=== PATIENT | male | born 1965 | race Caucasian/White ===

== ENCOUNTER 2022-04-30 11:48 | Outpatient (REF) | payer OTHER, SELFPAY ==
[2022-04-30 13:22] LABS: MANUAL DIFF FLAG NO
[2022-04-30 13:34] LABS: Basophils Percent Auto 0.8 % (0-2); Eosinophils Absolute Auto 0.4 X10*3/uL (0.0-0.4); Eosinophils Percent Auto 6.7 % (0-4); Hematocrit 36.1 % (42.0-52.0); Hemoglobin 11.5 g/dl (14.0-18.0); Imm Gran Abs Auto 0.05 X10*3/uL (0.00-0.03); Lymphocytes Absolute Auto 1.6 X10*3/uL (1.2-4.9); Lymphocytes Percent Auto 30.3 % (20-40); Mean Corpuscular HGB Conc 31.9 g/dl (31.0-36.0); Mean Corpuscular Hemoglobin 30.3 pg (27.0-33.0); Mean Corpuscular Volume 95.3 fL (80.0-98.0); Mean Platelet Volume 10.1 fL (9.4-12.4); Monocytes Absolute Auto 0.5 X10*3/uL (0.1-1.2); Monocytes Percent Auto 9.3 % (2-11); Neutrophils Absolute Auto 2.7 x10*3/uL (2.0-8.3); Neutrophils Percent Auto 51.9 % (45-73); Platelet Count 299 X10*3/uL (160-400); Red Blood Count 3.79 X10*6/uL (4.60-5.80); Red Cell Distribution Width 13.8 % (11.0-16.0); White Blood Count 5.3 X10*3/uL (4.8-10.8)
[2022-04-30 13:45] LABS: Appearance Urine CLEAR; Color Urine YELLOW; Glucose Urine UA NEG (NEG); Leukocyte Esterase Urine NEG (NEG); Nitrite Urine NEG (NEG); Urine Blood NEG (NEG); Urine Ketones NEG (NEG); Urine Protein NEG (NEG-TRACE)
[2022-04-30 14:04] LABS: Alanine Aminotransferase 12 U/L (0-40); Albumin Level 3.9 g/dL (3.5-5.0); Alkaline Phosphatase 50 U/L (39-117); Anion Gap 10 (12-20); Aspartate Amino Transferase 17 U/L (5-37); Bilirubin Total < 0.2 mg/dL (0.0-1.0); Blood Urea Nitrogen 10 mg/dL (9-16); Calcium 8.7 mg/dL (8.4-10.2); Carbon Dioxide 26 mmol/L (22-29); Chloride 104 mmol/L (96-108); Cholesterol 138 mg/dL; Estimated Glomerular Filt Rate > 60; Glucose Fasting 123 mg/dL (60-99); HDL Cholesterol 47 mg/dL; LDL Cholesterol Calculated 74 mg/dl; Potassium 4.4 mmol/L (3.3-5.1); Sodium 136 mmol/L (135-145); Total Protein 6.3 g/dL (6.5-8.0); Triglycerides 87 mg/dL
[2022-04-30 14:14] LABS: Rheumatoid Factor < 15.0 IU/mL (<15.0)
[2022-04-30 14:22] LABS: Erythrocyte Sedimentation Rate 9 MM/HR (0-15); Prostate Specific Antigen Scr 0.55 ng/mL (<0.05-4.0); TSH reflex Free T4 0.55 uIU/mL (0.32-4.0)
[2022-05-04 11:06] LABS: Anti Nuclear Antibody Screen POSITIVE (NEGATIVE); Anti Nuclear Antibody Titer 1:40 titer
== END 2022-04-30 11:49 | disposition home or self-care (01) ==
LOC: HO.WFDLDS 11:48
PROVIDERS: Visit Provider Family Medicine
DX: Z00.00 Encounter for general adult medical examination without abnormal findings (principal); Z12.5 Encounter for screening for malignant neoplasm of prostate; M54.41 Lumbago with sciatica, right side; R21 Rash and other nonspecific skin eruption
CPT/HCPCS: 36415; 80053; 80061; 81003; 84153; 84443; 85025; 85652; 86038; 86039; 86431

== ENCOUNTER 2022-05-16 12:21 | Outpatient (REF) | payer OTHER, SELFPAY ==
[2022-05-16 14:03] LABS: MANUAL DIFF FLAG NO
[2022-05-16 14:07] LABS: Basophils Absolute Auto 0.1 X10*3/uL (0.0-0.2); Basophils Percent Auto 1.1 % (0-2); Eosinophils Absolute Auto 0.2 X10*3/uL (0.0-0.4); Eosinophils Percent Auto 2.9 % (0-4); Hematocrit 42.2 % (42.0-52.0); Hemoglobin 13.7 g/dl (14.0-18.0); Imm Gran Abs Auto 0.02 X10*3/uL (0.00-0.03); Imm Gran Pct Auto 0.4 % (0.0-0.4); Lymphocytes Absolute Auto 1.5 X10*3/uL (1.2-4.9); Lymphocytes Percent Auto 26.5 % (20-40); Mean Corpuscular HGB Conc 32.5 g/dl (31.0-36.0); Mean Corpuscular Hemoglobin 30.8 pg (27.0-33.0); Mean Corpuscular Volume 94.8 fL (80.0-98.0); Mean Platelet Volume 10.2 fL (9.4-12.4); Monocytes Absolute Auto 0.5 X10*3/uL (0.1-1.2); Monocytes Percent Auto 9.3 % (2-11); Neutrophils Absolute Auto 3.3 x10*3/uL (2.0-8.3); Neutrophils Percent Auto 59.8 % (45-73); Platelet Count 379 X10*3/uL (160-400); Red Blood Count 4.45 X10*6/uL (4.60-5.80); Red Cell Distribution Width 14.2 % (11.0-16.0); White Blood Count 5.5 X10*3/uL (4.8-10.8)
[2022-05-16 14:30] LABS: Alanine Aminotransferase 12 U/L (0-40); Albumin Level 4.5 g/dL (3.5-5.0); Alkaline Phosphatase 63 U/L (39-117); Anion Gap 13 (12-20); Aspartate Amino Transferase 18 U/L (5-37); Bilirubin Total 0.3 mg/dL (0.0-1.0); Blood Urea Nitrogen 6 mg/dL (9-16); Calcium 9.4 mg/dL (8.4-10.2); Carbon Dioxide 28 mmol/L (22-29); Chloride 105 mmol/L (96-108); Estimated Glomerular Filt Rate > 60; Glucose Random 94 mg/dL (60-115); Potassium 4.8 mmol/L (3.3-5.1); Sodium 141 mmol/L (135-145); Total Protein 7.3 g/dL (6.5-8.0)
== END 2022-05-16 12:22 | disposition home or self-care (01) ==
LOC: HO.WFDLDS 12:21
PROVIDERS: Visit Provider Family Medicine
DX: Z00.00 Encounter for general adult medical examination without abnormal findings (principal); R10.2 Pelvic and perineal pain; R10.9 Unspecified abdominal pain
CPT/HCPCS: 36415; 80053; 85025

== ENCOUNTER 2022-05-29 11:16 | Outpatient (REF) | payer OTHER, SELFPAY ==
--- NOTE | ~2022-05-29 | XR_ITS ---
EXAMINATION: XR CHEST CLINICAL INFORMATION: Chest pain on breathing. COMPARISON: None TECHNIQUE: 2 views of the chest were obtained. FINDINGS: The lungs are hyperinflated but clear of acute process. The heart size and pulmonary vascularity is normal. No gross bony abnormality seen. XR/XR chest 2V IMPRESSION: Hyperinflated lungs without acute pneumonic process.
== END 2022-05-29 11:17 | disposition home or self-care (01) ==
LOC: HO.HMGCX 11:16
PROVIDERS: PCP Family Medicine; Visit Provider Family Medicine
DX: R07.1 Chest pain on breathing (principal)
CPT/HCPCS: 71046

== ENCOUNTER 2022-05-31 11:00 | Outpatient (REF) | payer OTHER, SELFPAY ==
[2022-05-31 14:04] LABS: Anion Gap 15 (12-20); Blood Urea Nitrogen 11 mg/dL (9-16); Calcium 9.4 mg/dL (8.4-10.2); Carbon Dioxide 27 mmol/L (22-29); Chloride 104 mmol/L (96-108); Estimated Glomerular Filt Rate > 60; Glucose Random 91 mg/dL (60-115); Potassium 4.4 mmol/L (3.3-5.1); Sodium 142 mmol/L (135-145)
== END 2022-05-31 11:01 | disposition home or self-care (01) ==
LOC: HO.WFDLDS 11:00
PROVIDERS: Visit Provider Family Medicine
DX: Z00.00 Encounter for general adult medical examination without abnormal findings (principal); R10.2 Pelvic and perineal pain; R10.9 Unspecified abdominal pain
CPT/HCPCS: 36415; 80048

== ENCOUNTER 2022-06-20 09:41 | Outpatient (REF) | payer OTHER, SELFPAY ==
--- NOTE | ~2022-06-20 | CT_ITS ---
EXAMINATION: CT ABDOMEN AND PELVIS WITH CONTRAST CLINICAL INFORMATION: Abdominal pain COMPARISON: None TECHNIQUE: Multidetector volumetric images were obtained from the superior aspect of the liver through the pubic symphysis following administration 85 mL of Omnipaque 350 intravenous contrast. Sagittal and coronal reformatted images were obtained on the technologist's workstation. Oral contrast: Yes This CT examination was performed using dose optimization techniques as appropriate, variously including the following: *Automated exposure control *Adjustment of mA and/or kV according to patient size (this includes techniques or standardized protocols for targeted exams where dose is matched to indication/reason for exam; i.e. extremities or head) *Use of iterative reconstruction technique DLP: 251 mGy-cm FINDINGS: LUNG BASES: There is evidence of emphysema. LIVER, GALLBLADDER, AND BILIARY TREE: There is a small 5 mm low-attenuation lesion in the right lobe of the liver. This is difficult to characterize due to small size but may represent a cyst. The liver is otherwise normal. The gallbladder is normal. There is no biliary duct dilatation. PANCREAS: Unremarkable. SPLEEN: Unremarkable. ADRENAL GLANDS: Unremarkable. KIDNEYS AND URETERS: The kidneys are normal in size, shape, and attenuation. No hydronephrosis, hydroureter, or calculi seen. No perinephric stranding. BLADDER: Unremarkable. GASTROINTESTINAL TRACT: There is stool throughout the colon suggestive of constipation. Small and large bowel is otherwise unremarkable. The appendix is unremarkable. The stomach is unremarkable. ABDOMINAL WALL: No significant hernia is appreciated. LYMPH NODES: Normal. VASCULAR: There is evidence of atherosclerotic disease. No aneurysm. PELVIC VISCERA: Unremarkable. OSSEOUS STRUCTURES: There are degenerative changes of the spine. There is curvature of the lumbar spine to the left. CT/CT abdomen pelvis w IV con IMPRESSION: Stool throughout the colon suggestive of constipation. Probable small liver cyst. Emphysematous changes at the lung bases. Fleischner guidelines were followed.
[2022-06-20] MEDS: Barium Sulfate Oral (Berry) 450 ML ORAL.SUSP 900 ML PO (12:00)
[2022-06-20] MEDS: iohexoL 350 MG/ML 100 ML INFUS..BTL 85 ML IV (12:00)
== END 2022-06-20 09:42 | disposition home or self-care (01) ==
LOC: HO.CT 09:41
PROVIDERS: PCP Family Medicine; Visit Provider Family Medicine
DX: C62.90 Malignant neoplasm of unspecified testis, unspecified whether descended or undescended (principal); N50.82 Scrotal pain; R10.2 Pelvic and perineal pain; R10.9 Unspecified abdominal pain; R11.0 Nausea; R63.0 Anorexia
CPT/HCPCS: 74177; Q9967

== ENCOUNTER 2023-03-22 09:22 | Outpatient (REF) | payer OTHER, SELFPAY ==
[2023-03-22 11:35] LABS: MANUAL DIFF FLAG NO
[2023-03-22 11:53] LABS: Basophils Absolute Auto 0.1 X10*3/uL (0.0-0.2); Basophils Percent Auto 1.3 % (0-2); Eosinophils Absolute Auto 0.3 X10*3/uL (0.0-0.4); Eosinophils Percent Auto 4.9 % (0-4); Hematocrit 42.3 % (42.0-52.0); Imm Gran Abs Auto 0.02 X10*3/uL (0.00-0.03); Imm Gran Pct Auto 0.4 % (0.0-0.4); Lymphocytes Absolute Auto 1.5 X10*3/uL (1.2-4.9); Lymphocytes Percent Auto 26.4 % (20-40); Mean Corpuscular HGB Conc 33.1 g/dl (31.0-36.0); Mean Corpuscular Hemoglobin 31.5 pg (27.0-33.0); Mean Corpuscular Volume 95.1 fL (80.0-98.0); Mean Platelet Volume 10.3 fL (9.4-12.4); Monocytes Absolute Auto 0.6 X10*3/uL (0.1-1.2); Monocytes Percent Auto 10.6 % (2-11); Neutrophils Absolute Auto 3.1 x10*3/uL (2.0-8.3); Neutrophils Percent Auto 56.4 % (45-73); Platelet Count 342 X10*3/uL (160-400); Red Blood Count 4.45 X10*6/uL (4.60-5.80); Red Cell Distribution Width 14.3 % (11.0-16.0); White Blood Count 5.5 X10*3/uL (4.8-10.8)
[2023-03-22 12:12] LABS: Appearance Urine Clear; Color Urine Yellow; Glucose Urine UA Negative (Negative); Leukocyte Esterase Urine Negative (Negative); Nitrite Urine Negative (Negative); PH 6.5 (5.0-9.0); Urine Blood Negative (Negative); Urine Ketones Negative (Negative); Urine Protein Negative (Neg-Trace)
[2023-03-22 12:26] LABS: Alanine Aminotransferase 20 U/L (0-40); Albumin Level 4.2 g/dL (3.5-5.0); Alkaline Phosphatase 56 U/L (39-117); Anion Gap 13 (12-20); Aspartate Amino Transferase 21 U/L (5-37); Bilirubin Total 0.4 mg/dL (0.0-1.0); Blood Urea Nitrogen 12 mg/dL (9-16); Calcium 9.2 mg/dL (8.4-10.2); Carbon Dioxide 25 mmol/L (22-29); Chloride 106 mmol/L (96-108); Cholesterol 151 mg/dL; Estimated Glomerular Filt Rate > 60; Glucose Random 90 mg/dL (60-115); HDL Cholesterol 44 mg/dL; LDL Cholesterol Calculated 91 mg/dl; Potassium 4.2 mmol/L (3.3-5.1); Sodium 140 mmol/L (135-145); Triglycerides 80 mg/dL
[2023-03-22 12:32] LABS: Prostate Specific Antigen Scr 0.72 ng/mL (<0.05-4.0); TSH reflex Free T4 0.47 uIU/mL (0.32-4.0)
[2023-03-22 12:57] LABS: Syphilis Screen Nonreactive (Nonreactive)
[2023-03-22 14:31] LABS: HBS Num1 0.32 mIU/mL (0-7.99); HBc Num1 0.24 S/CO (0.00-0.79); HBsAGNum1 0.27 S/CO (0.00-0.99); HIV AB/AG Nonreactive (Nonreactive); HIV Num 1 0.06 S/CO (0.00-0.99); Hepatitis B Core Antibody Nonreactive (Nonreactive); Hepatitis B Surface Antigen Negative (Negative); ~HepC Num1 0.19 S/CO (0.00-0.79); ~Hepatitis B Surface Antibody NONREACTIVE (Nonreactive); ~Hepatitis C Antibody Nonreactive (Nonreactive)
[2023-03-24 10:58] LABS: LDL Cholesterol Direct 96 mg/dL (<100)
== END 2023-03-22 09:23 | disposition home or self-care (01) ==
LOC: HO.WFDLDS 09:22
PROVIDERS: Visit Provider Family Medicine
DX: Z00.00 Encounter for general adult medical examination without abnormal findings (principal); Z12.5 Encounter for screening for malignant neoplasm of prostate; Z11.3 Encounter for screening for infections with a predominantly sexual mode of transmission; R53.83 Other fatigue
CPT/HCPCS: 36415; 80053; 80061; 81003; 83721; 84153; 84443; 85025; 86704; 86706; 86780; 86803; 87340; 87389

== ENCOUNTER 2023-06-20 11:52 | Outpatient (AMB) | payer OTHER, SELFPAY ==
--- NOTE | 2023-06-20 11:56 | A.OFFPC_ITS ---
Vital Signs 06/20/23 11:57 Height 6 ft 2 in Weight 150 lb 2 oz BMI 19.3 BP 122/76 Blood Pressure Location Lt brachial Position Sitting Pulse 76 Pulse Source Pulse Oximeter Pulse Oximetry (%) 97 Oxygen Delivery Method Room Air Intake Visit Reasons: CPE Intake Note: Patient is here for his physical today, and concern of increasing meds, and working on disability. Allergies No Known Allergies [No Known Allergies*] Allergy (Verified 06/20/23 12:00) Tobacco use date assessed: 06/20/23 Dental Screening Dental Screen Date: 06/20/23 Did you have a dental visit in the last 12 months?: No Did you have a dental problem in the last 6 months where you did not have access to dental care?: No Was dental information given to patient?: Patient declined [facility] Medical History IBS (irritable bowel syndrome) Family History Father CVD (cardiovascular disease) Heart attack Mother Fibromyalgia Breast cancer Social History Housing: House Patient Tobacco Use Status: Current everyday Tobacco user e-Cigarette/Vaping Use: Never Used Second Hand Smoke Exposure: No service: No Current occupational status: unemployed Current occupational exposures/hazards: No Cognitive needs: No Hearing needs: No Vision needs: No Questionnaire DEMAR-7 AMB Questionnaire DEMAR-7 Date DEMAR - 7 assessed: 12/21/21 Source: Developed by Drs. Cedric Harmon, Kimberly Casarez, Hilton Chambers and colleagues, with an educational dorcas from [employer]. Review of Systems Const Details: ??? CONSTITUTIONAL ?no?fever.? no?fatigue.? no?chills.? EYES ?no?vision change.? ENT ?no?hearing loss.? no?nasal congestion.? no?hoarseness.? no?sore throat.? no?sinus pain.? CARDIOVASCULAR ?no?chest pain.? no?palpitations.? RESPIRATORY ?no?cough.? no?shortness of breath.? no?trouble breathing.? no?wheezing.? GASTROINTESTINAL ?no?abdominal pain.? no?change in stool.? no?blood in stool.? GENITOURINARY ?voiding normally?yes.? no?burning on urination.? no?blood in urine.? DERMATOLOGY ?no?rash.? MUSCULOSKELETAL ?no?bone pain.? no?joint pain.? no?muscle pain.? ENDOCRINE ?no?heat intolerance.? no?cold intolerance.? no?increased thirst.? HEMATOLOGY/LYMPH ?no?abnormal bleeding.? no?easy bruising.? PSYCHIATRIC ?no?anxiety.? no?depression.? ALLERGIC/IMMUNOLOGIC ?no?seasonal allergies.? NEUROLOGIC ?no?incoordination.? no?headache.? no?weakness.? no?dizziness.? no?gait abnormality.? Physical exam (Primary Care) Vital Signs: Last Vital Signs Pulse 76 06/20/23 11:57 BP 122/76 06/20/23 11:57 Pulse Ox 97 06/20/23 11:57 Oxygen Delivery Method Room Air 06/20/23 11:57 BMI result Body Mass Index 19.3 Tobacco/Smoking Status: Tobacco use Status Tobacco use date assessed 06/20/23 06/20/23 12:04 Patient Tobacco Use Status Current everyday Tobacco 06/20/23 12:04 Tobacco use type 06/15/22 15:22 e-Cigarette/Vaping Use Never Used 06/20/23 12:04 Const Other: General Appearance: no apparent distress, pleasant. HEENT: PERRLA, EOMI bilaterally, nose clear, TM's normal. Oral cavity: no lesions, pharnyx and tonsils normal. Neck: supple, no lymphadenopathy, no thyromegaly, JVP flat, no carotid bruit Heart: RRR, no murmurs, clicks or rubs, no gallops. Lungs: clear to auscultation. Chest wall: nontender. Abdomen: soft, non tender/non distended, no masses palpated, no hepatosplenomega ly, normal active bowel sounds. Back: normal ROM of spine, no spinal tenderness, no CVA tenderness. Skin: normal, no rash. Peripheral pulses: 2+, radial, dorsalis pedis, posterior tibial, bilaterally symetrical. Extremities: no edema. Neurologic Exam: alert and oriented x3, gait normal, no focal abnormality, motor 5/5 bilaterally proximally and distally in all 4 extremities, DTRs 1-2+ in all 4 exremities, Rhomberg negative, tiptoes for 5 seconds. Psych: affect normal. Assessment and Plan Assessment & Plan (1) Adult general medical exam: Code(s): Z00.00 - Encounter for general adult medical examination without abnormal findings Plan: 58-year-old male presents for complete physical exam Encouraged healthy diet with active lifestyle and plenty of exercise (2) Mild anemia: Code(s): D64.9 - Anemia, unspecified Plan: Resolved (3) GERD (gastroesophageal reflux disease): Code(s): K21.9 - Gastro-esophageal reflux disease without esophagitis Plan: Frequent symptoms-every day Start omeprazole Declines referral to GI for now but we can readdress this issue. (4) COPD (chronic obstructive pulmonary disease): Code(s): J44.9 - Chronic obstructive pulmonary disease, unspecified Plan: Patient is weaning down his smoking and I encouraged this Breathing currently stable as is his pulmonary exam. Had ordered chest x-ray which he has not gotten done yet. Reminded him to get this done and we can follow-up at his next visit (5) Smoker: Code(s): F17.200 - Nicotine dependence, unspecified, uncomplicated Plan: As above he is working on weaning off of smoking (6) Dermatitis: Code(s): L30.9 - Dermatitis, unspecified Plan: Ongoing dermatitis on his face and had previous scalp and castellanos fungal infection Has used some Nizoral shampoo which helped but still has residual dermatitis He can try a steroid ointment (7) Chronic back pain: Code(s): M54.9 - Dorsalgia, unspecified; G89.29 - Other chronic pain Plan: Chronic back pain with sciatica and radicular symptoms These affect his ability to work as he cannot bend or lean. He has difficulty sitting in anyone place for longer than a few minutes but also has difficulty with distances of walking. Muscle frequently change positions and what he is doing. Unable to lift or carry items having 20 lb. Exacerbations can cause him to lose strength in his legs and fall. Has had imaging, physical therapy and referral to pain management. These things did not help. Avoiding opiates as he is a recovering alcoholic. Has not tried gabapentin so we will give him this to try Patient is disabled and has been out of work. He will get me forms and we will fill them out to certify disability. (8) Depression with anxiety: Code(s): F41.8 - Other specified anxiety disorders Plan: He notes some significant worsening of depression lately. Taking paroxetine as prescribed Will add bupropion as adjunct. (9) Screening for prostate cancer: Code(s): Z12.5 - Encounter for screening for malignant neoplasm of prostate Plan: PSA is within normal limits (10) Screening for colon cancer: Code(s): Z12.11 - Encounter for screening for malignant neoplasm of colon Plan: Patient declines colonoscopy but agrees to Cologuard test. [place] Orders: Referrals Cologuard Test Z12.11 - Encounter for screening for malignant neoplasm of colon, Z12.12 - Encounter for screening for malignant neoplasm of rectum Medications: New gabapentin 300 mg PO BID 30 days 60 caps 2RF omeprazole 20 mg PO DAILY 30 days 30 caps 2RF betamethasone valerate 0.1% 1 appl topical DAILY 14 days PRN 45 grams 0RF skin irritation bupropion HCl 75 mg PO BID 30 days 60 tabs 1RF Refilled ketoconazole 1% (Nizoral A-D) 1 appl topical Q3D 15 days 200 mL 1RF paroxetine HCl 40 mg PO QAM 60 tabs 2RF R10.2 - Pelvic and perineal pain, R10.9 - Unspecified abdominal pain Coding Level of Care Code Est Pt Prev Care 40-64y(10985) Diagnoses Adult general medical exam Z00.00 Mild anemia D64.9 GERD (gastroesophageal reflux disease) K21.9 COPD (chronic obstructive pulmonary disease) J44.9 Smoker F17.200 Dermatitis L30.9 Chronic back pain M54.9; G89.29 Depression with anxiety F41.8 Screening for prostate cancer Z12.5 Screening for colon cancer Z12.11
[2023-06-20 11:57] VITALS: BP 122/76; PULSE 76; O2SAT 97; BMI 19.3
== END 2023-06-20 14:29 | disposition home or self-care (01) ==
PROVIDERS: PCP Family Medicine; Visit Provider Family Medicine
DX: Z00.00 Encounter for general adult medical examination without abnormal findings (principal); K21.9 Gastro-esophageal reflux disease without esophagitis; F17.210 Nicotine dependence, cigarettes, uncomplicated; F41.8 Other specified anxiety disorders; J44.9 Chronic obstructive pulmonary disease, unspecified; D64.9 Anemia, unspecified; L30.9 Dermatitis, unspecified; M54.9 Dorsalgia, unspecified
CPT/HCPCS: 99396

== ENCOUNTER 2024-04-29 15:04 | Outpatient (AMB) | payer OTHER, SELFPAY ==
--- NOTE | 2024-04-29 15:11 | MHC.OFFWIV ---
Intake Vital Signs 04/29/24 15:16 Weight 139 lb 4 oz BP 144/78 H Blood Pressure Location Lt brachial Position Sitting Respiration 16 Pulse 98 Pulse Source Pulse Oximeter Temp 97.8 F Temp Source Temporal Artery Scan Pulse Oximetry (%) 99 Oxygen Delivery Method Room Air Intake Visit Reasons: Upper Respiratory infection Intake Note: patient here c/o upper respiratory infection,he states he has had it before. 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 He reports that this happens at least once a year and he responds well to azithromycin. He has not currently on any inhalers. He denies fever, chills, ear pain, sore throat. No at-home treatment trialed before coming in today. Review of records show a CXR 2021 with hyperinflation c/w COPD. Awake alert NAD Sclera and conjunctiva clear bilat Nares clear drainage, turbinates pale, no sinus tenderness with palpation bilat TM intact with congestion bilat, no erythema MMM, pharynx + PND RRR LS dim throughout w/ ins/exp wheezing Plan: asked if he has ever taken prednisone or inhaler. states he has not. does not like to take meds. [facility] [employer] works best for him. Offered and declined anti-tussive. Edu to RTO if no improvement or worsening of sx. [facility] Medical History IBS (irritable bowel syndrome) Family History Father CVD (cardiovascular disease) Heart attack Mother Fibromyalgia Breast cancer Social History Housing: House Patient Tobacco Use Status: Current everyday Tobacco user e-Cigarette/Vaping Use: Never Used Second Hand Smoke Exposure: No service: No Current occupational status: unemployed Current occupational exposures/hazards: No Cognitive needs: No Hearing needs: No Vision needs: No Physical Exam Vital Signs: Last Vital Signs Temp 97.8 F 04/29/24 15:16 Pulse 98 04/29/24 15:16 Resp 16 04/29/24 15:16 BP 144/78 H 04/29/24 15:16 Pulse Ox 99 04/29/24 15:16 Oxygen Delivery Method Room Air 04/29/24 15:16 Assessment & Plan Assessment & Plan (1) COPD exacerbation: Code(s): J44.1 - Chronic obstructive pulmonary disease with (acute) exacerbation Plan: . (2) Smoker: Code(s): F17.200 - Nicotine dependence, unspecified, uncomplicated Plan: . Medications: New azithromycin For 250 mg dose pack: take 500 mg today (day 1), then 250 mg for 4 days (days 2-5) PO 5 days 6 tabs 0RF Patient Instructions: Smoking Cessation How to Quit There are a lot of ways to quit smoking and many resources to help you. Family members, friends, and co-workers may be supportive or encouraging, but to be successful the desire and commitment to quit must be your own. Most people who have been able to successfully quit smoking made at least one unsuccessful attempt in the past. Try not to view past attempts to quit as failures, but rather as learning experiences. Stopping smoking or using smokeless tobacco is difficult, but anyone can do it. Know the symptoms to expect when you stop. Common symptoms include: ? An intense craving for nicotine ? Anxiety, tension, restlessness, frustration, or impatience ? Difficulty concentrating ? Drowsiness or trouble sleeping, as well as bad dreams and nightmares ? Drowsiness and trouble sleeping ? Headaches ? Increased appetite and weight gain ? Irritability or depression How severe your symptoms are depends on how long you smoked and how many cigarettes you smoked each day. Feel ready to quit? ? First and foremost, set a quit date and quit completely on that day. Before your quit date, you may begin reducing your cigarette use. But remember, there is no safe level of cigarette smoking. ? List the reasons why you want to quit. Include both short- and long-term benefits. ? Identify the times you are most likely to smoke. For example, do you tend to smoke when feeling stressed or down? When out at night with friends? While drinking coffee or alcohol? When bored? While driving? Right after a meal or sex? During a work break? While watching TV or playing cards? When you are with other smokers? ? Let all of your friends, family, and co-workers know of your plan to stop smoking and your quit date. Just being aware that they know what you're going through can be helpful, especially when you are grumpy. ? Get rid of all your cigarettes just before the quit date, and clean out anything that smells like smoke, such as clothes and furniture. Make a plan about what you will do instead of smoking at those times when you are most likely to smoke. ? Be as specific as possible. For example, drink tea instead of coffee -- tea may not trigger the desire for a cigarette. Or, take a walk when you feel stressed. ? Remove ashtrays and cigarettes from the car. Place pretzels or hard candies there instead. Pretend-smoke with a straw. ? Find activities that focus your hands and mind but are not taxing or fattening. Computer games, solitaire, knitting, sewing, and crossword puzzles may help. ? If you normally smoke after eating, find other ways to end a meal. Play a tape or CD, eat a piece of fruit, get up and make a phone call, or take a walk (a good distraction that also rodriguez calories). Make other changes in your lifestyle. ? Change your daily schedule and habits. Eat at different times or eat several small meals instead of three large ones. Sit in a different chair or even a different room. ? Satisfy your oral habits by eating celery or other low-calorie snack, chewing sugarless gum, or sucking on a cinnamon stick. ? Go to public places and restaurants where smoking is prohibited or restricted. ? Eat regular meals and don't eat too much candy or sweet things. ? Get more exercise. Take walks or ride a bike. Exercise helps relieve the urge to smoke. Set short-term quitting goals and reward yourself when you meet them. ? Every day, put the money you normally spend on cigarettes in a jar. Then buy something pleasurable after a period of time. ? Try not to think about all the days ahead you will need to avoid smoking. Take it one day at a time. ? Even one puff or one cigarette will make your desire for more cigarettes even stronger. However, it is normal to make mistakes. So even if you have one cigarette, you don't need to take the next one. Other tips to help you quit smoking and stick to it: ? Enroll in a smoking cessation program (hospitals, health departments, community centers, and work sites often offer programs). Learn about self-hypnosis or other techniques. ? Ask your health care provider about prescription medications that are safe and appropriate for you. ? Find out about nicotine patches, gum, and sprays. The [place] [employer]'s web site -- www.cancer.org -- is an excellent resource for smokers who are trying to quit, and the [employer] [place] [employer] can help some smokers kick the habit. Above all, don't get discouraged if you aren't able to quit smoking the first time. Nicotine addiction is a hard habit to break. Try something different next time. Develop new strategies, and try again. Many people take several attempts to finally kick the habit. Coding Level of Care Code Est Pt Level 3 (42278) Diagnoses COPD exacerbation J44.1 Smoker F17.200
[2024-04-29 15:16] VITALS: BP 144/78; PULSE 98; RESP 16; TEMP 36.6; O2SAT 99
== END 2024-04-29 17:05 ==
PROVIDERS: PCP Family Medicine; Visit Provider Nurse Practitioner Family
DX: J44.1 Chronic obstructive pulmonary disease with (acute) exacerbation (principal); F17.200 Nicotine dependence, unspecified, uncomplicated
CPT/HCPCS: 99213

== ENCOUNTER 2025-07-29 14:23 | Outpatient (AMB) | payer OTHER, SELFPAY ==
[2025-07-29 14:38] VITALS: BP 126/72; PULSE 74; RESP 14; TEMP 36.9; O2SAT 97; BMI 18.9
--- NOTE | 2025-07-29 14:38 | MHC.PC.OV ---
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 He has not been seen in a few years by his PCP. He has a significant past medical history of COPD, chronic back pain, testicular cancer, GERD and mood disorder. Psych: Currently on paroxetine 40 mg daily. CV: Blood pressure today in the office is 126/72. Denies any chest pain or shortness on breath. Pulm: does not want any inhalers or ct screening for smoking. States breathing is fine. Does not want to quit smoking Derm: would like referral to derm again for rash on face. was ordered clotramizole-betamethasone in past and never picked it up. Did not get to see derm in past due to insurance issues. Msk: states he has vikings disease of both hands x years. left side is worse and more bothersome. He has seen Dr. 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 1. Little interest or pleasure in doing things: not at all 2. Feeling down, depressed, or hopeless: not at all 3. Trouble falling or staying asleep, or sleeping too much: not at all 4. Feeling tired or having little energy: several days 5. Poor appetite or overeating: not at all 6. Feeling bad about yourself - or that you are a failure or have let yourself or your family down: not at all 7. Trouble concentrating on things, such as reading the newspaper or watching television: not at all 8. Moving or speaking so slowly that other people could have noticed. Or the opposite - being so fidgety or restless that you have been moving around a lot more than usual: not at all 9. Thoughts that you would be better off or of hurting yourself in some way: not at all Total score: 1 Depression Screening Interpretation: Negative Depression Screening Done: Yes 66937 - PHQ-9 Billing: Yes Source: Developed by Drs. Cedric Harmon, Kimberly Casarez, Hilton Chambers and colleagues, with an educational dorcas from [employer]. Thrive Questionnaire Date Thrive assessed: 07/27/25 I am a: Patient What is your living situation today?: I have a steady place to live Within the past 12 months, did the food you bought not last and you didn't have the money to get more?: Never true Within the past 12 months, did you worry whether your food would run out before you got money to buy more?: Never true Do you have trouble paying for medicines?: No Do you have trouble getting transportation to medical appointments?: No Do you have trouble paying your heating and electricity bill?: No Do you have trouble taking care of your child, family member or friend?: No Do you have trouble with day-to-day activities such as bathing, preparing meals, shopping, managing finances, etc.?: No Are you currently unemployed and looking for a job?: No Are you interested in more education?: No Please select the resources that you would like help with: None Currently or been in a relationship where the following occur: I choose not to answer THRIVE Score: 0 AUDIT C Alcohol Use Questionnaire (AUDIT-C) 1. How often do you have a drink containing alcohol?: Never 3. How often do you have six or more drinks on one occasion?: Never Total Score: 0 DEMAR-7 AMB Questionnaire DEMAR-7 Date DEMAR - 7 assessed: 07/29/25 Feeling nervous, anxious, or on edge: 0 = Not at all Not being able to stop or control worryin = Not at all Worrying too much about different things: 0 = Not at all Trouble relaxin = Not at all Being so restless that it is hard to sit still: 0 = Not at all Becoming easily annoyed or irritable: 0 = Not at all Feeling afraid as if something awful might happen: 0 = Not at all Total DEMAR-7 score (0-4 normal; 5-9 mild; 10-14 moderate; 15-21 severe): 0 Source: Developed by Drs. Cedric Harmon, Kimberly Casarez, Hilton Chambers and colleagues, with an educational dorcas from [employer]. DEMAR-7 Assessment Billing DEMAR-7 Assessment Tool: DEMAR-7 Assessment 08468 Physical exam (Primary Care) Vital Signs: Last Vital Signs Temp 98.4 F 07/29/25 14:38 Pulse 74 07/29/25 14:38 Resp 14 07/29/25 14:38 BP 126/72 07/29/25 14:38 Pulse Ox 97 07/29/25 14:38 Oxygen Delivery Method Room Air 07/29/25 14:38 BMI result Body Mass Index 18.9 Tobacco/Smoking Status: Tobacco use Status Tobacco use date assessed 06/20/23 07/29/25 14:44 Patient Tobacco Use Status Current everyday Tobacco 07/29/25 14:44 Tobacco use type 06/15/22 15:22 e-Cigarette/Vaping Use Never Used 07/29/25 14:44 PHQ-9: PHQ-9 Score PHQ-9: Total score 1 07/29/25 14:44 Depression Screening Interpretation: Negative Thrive Assessment: Date of Thrive Assessment Date Thrive assessed 07/27/25 07/29/25 14:44 Currently or been in a relationship where the following occur: I choose not to answer Const Orientation/consciousness: patient oriented x3 HENMT Ears: hearing grossly normal bilaterally and TM's normal bilaterally General nose exam: No nasal polyps present Face and sinus: Yes sinuses nontender Mouth: Normal oral and palatal mucosa present Eyes EOM: EOMs intact bilaterally Neck Neck: Yes full ROM and Yes no lymphadenopathy Thyroid: Thyroid normal Chest Chest palpation & inspection: normal inspection of the chest Resp Auscultation: clear to auscultation bilaterally Cardio Rate: regular rate Rhythm: regular rhythm Heart sounds: S1 normal heart sound present and S2 normal heart sound present Peripheral pulses: Peripheral pulses 2+ throughout GI Other: Soft, nontender Auscultation: normal bowel sounds Rectal Exam - Male: Yes deferred Skin General skin exam: no rashes or lesions noted Neuro General: patient oriented x3, gait normal and CN's II-XI intact bilaterally Motor exam (neuro): 5/5 motor strength present throughout Coordination: [id number] test normal and Romberg test negative Extrem Other: left fifth finger contraction noted General: Yes normal to inspection and Yes full ROM Psych Affect: normal affect Attitude: cooperative Thought process: Normal thought process present Thought content: Normal thought content present Insight: Good insight present (Psych) Judgement: Good judgement present (Psych) Coding Level of Care Code Est Pt Level 3 (77038) Est Pt Prev Care 40-64y(81586) Diagnoses Adult general medical exam Z00.00 Rash R21 Smoker F17.200 Depression with anxiety F41.8 Dupuytren contracture of both hands M72.0 Additional Codes DEMAR-7 Assessment Billing - DEMAR-7 Assessment Tool: DEMAR-7 Assessment 92686 ([id number]) PHQ-9 - 60129 - PHQ-9 Billing: Yes ([id number]) Assessment & Plan Assessment & Plan (1) Adult general medical exam: Code(s): Z00.00 - Encounter for general adult medical examination without abnormal findings Category: Medical Plan: hm reviewed declined screening labs ordered (2) Rash: Code(s): R21 - Rash and other nonspecific skin eruption Category: Medical Plan: will refer back to derm (3) Smoker: Code(s): F17.200 - Nicotine dependence, unspecified, uncomplicated Category: Social Hx Plan: declines screening tests (4) Depression with anxiety: Code(s): F41.8 - Other specified anxiety disorders Category: Medical Plan: continue paroxetine refilled today (5) Dupuytren contracture of both hands: Code(s): M72.0 - Palmar fascial fibromatosis [Dupuytren] Category: Medical Plan: referral to hand surgery Orders: Orders Complete Blood Count Auto Diff Today F17.200 - Nicotine dependence, unspecified, uncomplicated, F41.8 - Other specified anxiety disorders, Z00.00 - Encounter for general adult medical examination without abnormal findings Prostate Specific Antigen Scr Today F17.200 - Nicotine dependence, unspecified, uncomplicated, F41.8 - Other specified anxiety disorders, Z00.00 - Encounter for general adult medical examination without abnormal findings, Z01.89 - Encounter for other specified special examinations UA CC w/rflx Micro + Cult Today F17.200 - Nicotine dependence, unspecified, uncomplicated, F41.8 - Other specified anxiety disorders, R30.0 - Dysuria, Z00.00 - Encounter for general adult medical examination without abnormal findings Comprehensive [place]. Panel Fast Today F17.200 - Nicotine dependence, unspecified, uncomplicated, F41.8 - Other specified anxiety disorders, Z00.00 - Encounter for general adult medical examination without abnormal findings Lipid Panel Today F17.200 - Nicotine dependence, unspecified, uncomplicated, F41.8 - Other specified anxiety disorders, Z00.00 - Encounter for general adult medical examination without abnormal findings TSH reflex Free T4 Today F17.200 - Nicotine dependence, unspecified, uncomplicated, F41.8 - Other specified anxiety disorders, Z00.00 - Encounter for general adult medical examination without abnormal findings Referrals Hand Surgery Referral M72.0 - Palmar fascial fibromatosis [Dupuytren] Dermatology Referral R21 - Rash and other nonspecific skin eruption Medications: Refilled paroxetine HCl 40 mg PO QAM 90 tabs 3RF R10.2 - Pelvic and perineal pain, R10.9 - Unspecified abdominal pain clotrimazole-betamethasone 1-0.05 % 1 appl topical BID 30 mL 1RF 2 weeks
== END 2025-07-29 15:00 | disposition home or self-care (01) ==
LOC: HO.HMCFM 14:24
PROVIDERS: PCP Family Medicine; Visit Provider Physician Assistant
DX: Z00.00 Encounter for general adult medical examination without abnormal findings (principal); R21 Rash and other nonspecific skin eruption; F17.200 Nicotine dependence, unspecified, uncomplicated; F41.8 Other specified anxiety disorders; M72.0 Palmar fascial fibromatosis [Dupuytren]

== ENCOUNTER → 2025-07-29 14:23 | Outpatient (BNVA) | payer OTHER, SELFPAY | PROVIDERS: PCP Family Medicine; Visit Provider Physician Assistant | DX: Z00.00 Encounter for general adult medical examination without abnormal findings (principal); J44.9 Chronic obstructive pulmonary disease, unspecified; K21.9 Gastro-esophageal reflux disease without esophagitis; R21 Rash and other nonspecific skin eruption; F17.210 Nicotine dependence, cigarettes, uncomplicated; F41.8 Other specified anxiety disorders; M72.0 Palmar fascial fibromatosis [Dupuytren]; R10.20 Pelvic and perineal pain unspecified side | CPT/HCPCS: 96127 ==